=== PATIENT | male | born 1985 | race Caucasian/White ===

== ENCOUNTER 2021-10-23 13:56 | Emergency (ER) | payer MEDICAID ==
[~2021-10-23] VITALS: Ht 162.6 cm; Wt 59.1 kg
[~2021-10-23 13:56] MED LIST: HYDR-4383 PO; IBUP-1051 PO; IBUP-1986 PO; NAPR-1154 PO; NO HOME MEDS
[2021-10-23] MEDS ORDERED: LORazepam 1 MG tablet PO ONE (14:20)
[2021-10-23 14:47] VITALS: BP 119/75
== END 2021-10-23 15:45 | disposition home or self-care (01) ==
LOC: ER 13:56
DX: Z02.89 Encounter for other administrative examinations (principal); F41.9 Anxiety disorder, unspecified; R06.02 Shortness of breath; F15.90 Other stimulant use, unspecified, uncomplicated; Z56.0 Unemployment, unspecified; Z79.899 Other long term (current) drug therapy
CPT/HCPCS: 93005; 99283